=== PATIENT | male | born 1960 | race Caucasian/White ===

== ENCOUNTER 2023-11-30 12:42 | Emergency (ER) | payer OTHER, SELFPAY ==
[2023-11-30 12:45] VITALS: BP 154/98; PULSE 85; RESP 18; O2SAT 95; BMI 29.4
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
[2023-11-30] MEDS: ACETAMINOPHEN 500 MG TABLET 1000 MG PO (13:00)
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
--- NOTE | 2023-11-30 14:38 | ED.NURSE ---
Pt declined Percocet prescription, cancelled prescription on [employer].
== END 2023-11-30 14:37 | disposition home or self-care (01) ==
PROVIDERS: Emergency Provider Family Medicine
DX: M25.512 Pain in left shoulder (principal); V29.39XA Other motorcycle (driver) (passenger) injured in unspecified nontraffic accident, initial encounter
CPT/HCPCS: 73030; 99283; A9270